=== PATIENT | male | born 1985 | race Caucasian/White ===

== ENCOUNTER 2022-04-22 12:18 | Emergency (ER) | payer SELFPAY ==
[2022-04-22] MEDS ORDERED: Dextrose 5%-0.9% NaCl 1,000 ML IV SCH (12:45)
[2022-04-22 13:54] LABS: ACETAMINOPHEN 0 ug/mL (10-30)
[2022-04-22 14:04] LABS: CORONAVIRUS COVID-19 NAA NEGATIVE (NEGATIVE)
[2022-04-22] MEDS ORDERED: Nicotine 14 MG/24 Hr Patch TRDERM ONE (19:55)
== END 2022-04-23 12:26 | disposition home or self-care (01) ==
LOC: JD.ED 12:18
DX: F32.1 Major depressive disorder, single episode, moderate (principal); Z20.822 Contact with and (suspected) exposure to COVID-19
CPT/HCPCS: 0241U; 36415; 80053; 80143; 80179; 80307; 82553; 83735; 85025; 85610; 85730; 86140; 93005; 96360; 99284; A9270; J7042

== ENCOUNTER 2022-10-09 20:05 | Emergency (ER) | payer SELFPAY ==
[2022-10-09] MEDS ORDERED: Lactated Ringers 500 ML IV ONE (20:55)
[2022-10-09 21:09] LABS: BASOPHILS ABSOLUTE AUTO 0.02 K/mm3 (0.01-0.08); BASOPHILS PERCENT AUTO 0.1 % (0.1-1.2); EOSINOPHILS ABSOLUTE AUTO 0.11 K/mm3 (0.04-0.54); EOSINOPHILS PERCENT AUTO 0.7 (0.8-7.0); HEMATOCRIT 45.1 % (40.1-51.0); HEMOGLOBIN 15.8 gm/dl (13.7-17.5); IMMATURE GRAN ABSOLUTE AUTO 0.04 K/mm3 (0.00-0.10); IMMATURE GRAN PERCENT AUTO 0.3 % (<=1.0); LYMPHOCYTES PERCENT AUTO 9.3 % (21.8-53.1); MEAN CORPUSCULAR HEMOGLOBIN 30.9 pg (25.7-32.2); MEAN CORPUSCULAR VOLUME 88.3 fl (79.0-92.2); MEAN PLATELET VOLUME 9.7 fl (9.4-12.3); MONOCYTES ABSOLUTE AUTO 0.84 K/mm3 (0.30-0.82); MONOCYTES PERCENT AUTO 5.6 % (5.3-12.2); NEUTROPHILS ABSOLUTE AUTO 12.58 K/mm3 (1.78-5.38); PLATELET COUNT,PLT 307 K/mm3 (163-337); RED BLOOD CELL COUNT 5.11 M/mm3 (4.63-6.08); WHITE BLOOD CELL COUNT,WBC 14.99 K/mm3 (4.23-9.07)
[2022-10-09 21:15] LABS: INR 0.95; PROTHROMBIN TIME 10.2 SECONDS (9.7-12.0)
[2022-10-09] MEDS ORDERED: Lactated Ringers 1,000 ML IV SCH (21:15)
[2022-10-09 21:21] LABS: A/G RATIO 1.2 (1-2); ALBUMIN 3.9 g/dl (3.4-5.0); ANION GAP 9.4 (5-15); BILIRUBIN TOTAL 0.5 mg/dL (0.2-1.0); BUN/CREATININE RATIO 12.7 (14-18); CALCIUM 9.1 mg/dL (8.5-10.1); CREATININE 1.1 mg/dL (0.7-1.3); EST CRCL DRUG DOSING (CG) 99.94 mL/min; MAGNESIUM 1.9 mg/dL (1.8-2.4); POTASSIUM,K 4.4 mEq/L (3.5-5.1); PROTEIN TOTAL,TP 7.3 g/dl (6.4-8.2)
[2022-10-09] MEDS ORDERED: Ondansetron 4 MG/2 ML SDV IVPUSH ONE (22:15)
== END 2022-10-10 03:55 | disposition home or self-care (01) ==
LOC: JD.ED 20:05
DX: T40.411A Poisoning by fentanyl or fentanyl analogs, accidental (unintentional), initial encounter (principal); F19.10 Other psychoactive substance abuse, uncomplicated
CPT/HCPCS: 36415; 71046; 80053; 80307; 83605; 83735; 84484; 85025; 85610; 96361; 96374; 99284; J2405; J7120; 93010